=== PATIENT | male | born 1965 | race Caucasian/White ===

== ENCOUNTER 2022-06-25 07:41 | Outpatient (RCR) | payer OTHER, SELFPAY ==
--- NOTE | 2022-06-25 08:43 | PTOPEVAL1 ---
Assessment and note entered by Ge Leonardo Evaluation Information Assessment Status Evaluation Diagnosis L RUBY Onset 06/18/22 Subjective Information Pt. reports that he fell around the date of 06/11/22 . He reports that he tripped over a shoe on his floor. He states that fall resulted in a fx of the femur. He reports he underwent left RUBY a week after the fall. He reports that he was discharged from the hospital a few days after surgery. He is currently staying with his daughter, but is hopeful to return home by himself . He reports that he lives in an apartment and has about 10 steps to enter the home. He states that he does have a handrail at his apartment. He states that he is currently having pain in the groin and rates pain at 5/10. He reports that he is taking hydrocodone 1x/day for pain. He states that sleep is difficult because he cannot role over since surgery. He states that he was driving and completing all IADL's without any assistance prior to injury. He reports that his goal is to be able to return home by himself. Reported Pain Level Pain Score 5: Self Report Assessment PT Clinical Summary Pt. is a 56 year old male 1 week post L RUBY. He presenst with impaired gait, impaired l.e. strength, functional decline, and pain. Continued skilled PT is indicated in order to improve these areas to allow the pt. to improve gait and balance in order to return home by himself. Plan of Care Interventions Electrical Stimulation,Gait Training,Hot Pack/Cold Pack,Manual Therapy,Neuro Re-education,Patient/ Caregiver Educati,Therapeutic Activities, Therapeutic Exercise,Self-Care/Home Management PT Services Indicated Yes Treatment Frequency and 2x/week x 8 visits Duration These treatments will address the objective and functional deficits as defined above. The patient will be advanced safely and appropriately in order for the patient to progress towards his/her prior level of function. Additional exercises will be introduced and as well as a comprehensive home exercise program upon discharge, if needed, ?to ensure carryover of functional gains achieved in the clinic. This treatment plan has been reviewed and agreement upon by the patient.
== END 2022-07-01 19:00 | disposition home or self-care (01) ==
LOC: CHSPT 07:41
DX: E87.1 Hypo-osmolality and hyponatremia (principal); S72.002D Fracture of unspecified part of neck of left femur, subsequent encounter for closed fracture with routine healing
CPT/HCPCS: 97110; 97161

== ENCOUNTER 2022-06-27 11:34 | Outpatient (CLI) | payer OTHER, SELFPAY ==
[2022-06-27 12:08] LABS: Hemoglobin 12.3 g/dL (14.0-18.0); Mean Corpuscular HGB Conc 34.2 g/dL (32.0-36.0); Mean Corpuscular Hemoglobin 32.4 pg (27.0-31.0); Mean Corpuscular Volume 94.7 fL (78.0-102.0); Mean Platelet Volume 9.8 fl (8.7-11.0); Platelet Count Result 201 K/mm3 (150-420); Red Cell Distribution Width 13.1 % (11.6-14.4); White Blood Count 5.7 K/mm3 (4.8-10.8)
[2022-06-27 13:00] LABS: Alanine Aminotransferase 32 U/L (16-63); Albumin Level 3.2 g/dL (3.4-5.0); Alkaline Phosphatase 116 U/L (46-116); Anion Gap 10 mmol/L (8-16); Aspartate Amino Transferase 28 U/L (15-37); Blood Urea Nitrogen 6 mg/dL (7-18); Calcium 8.3 mg/dL (8.5-10.1); Carbon Dioxide 24 mmol/L (21-32); Chloride 96 mmol/L (98-108); Cholesterol 172 mg/dL (0-200); Estimated Glomerular Filt Rate > 60; Glucose 122 mg/dL (70-99); HDL Direct 39 mg/dL (40-60); LDL Cholesterol Calculated 105 mg/dL (<130); Osmolality Calculated 268 mOsm/kg (285-295); Potassium 3.9 mmol/L (3.5-5.1); Sodium 130 mmol/L (136-145); Total Protein 6.8 g/dL (6.4-8.2); Triglycerides 141 mg/dL (0-150)
== END 2022-06-27 11:35 | disposition home or self-care (01) ==
LOC: CHSLAB 11:37
PROVIDERS: PCP Family Medicine; Visit Provider Family Medicine
DX: Z00.00 Encounter for general adult medical examination without abnormal findings (principal); I10 Essential (primary) hypertension
CPT/HCPCS: 36415; 80053; 80061; 85027